=== PATIENT | female | born 2000 | race Two or more races ===

== ENCOUNTER 2023-02-23 13:17 | Emergency (ER) | payer OTHER, SELFPAY ==
--- NOTE | ~2023-02-23 | CT_ITS ---
EXAMINATION: CT brain wo con DATE: 02/23/2023 14:32 INDICATION: Migraine headache. TECHNIQUE: Computed tomography (CT) of the head was performed without intravenous contrast. The mA wa s adjusted according to patient size. Iterative reconstruction technique was employed. The dose-lengt h product was 529.67 mGy-cm. COMPARISON: None FINDINGS: There is no intracranial hemorrhage, acute infarction, or abnormal intracranial mass lesion . The ventricles are normal in size. The orbits are normal. There is mild mucosal thickening in the e thmoid sinuses. The mastoid air cells are normal. IMPRESSION: 1. Normal brain. Reviewed, dictated and finalized at location L. IMPRESSION: 1. Normal brain.
[2023-02-23 13:26] VITALS: BP 116/82; PULSE 90; RESP 16; TEMP 36.4; O2SAT 99
[2023-02-23] MEDS: KETOROLAC 15 MG/ML VIAL (*BKC) IV PUSH (15:45)
[2023-02-23] MEDS: SODIUM CHLORIDE 0.9% IV 1,000 ML 999 ML IV CONT (15:45)
[2023-02-23] MEDS: ACETAMINOPHEN 500 MG TABLET 1000 MG PO (15:46)
--- NOTE | 2023-02-23 15:47 | ED.HA ---
HPI - Headache General Chief Complaint: Headache Stated Complaint: Headache x 4 days - history of migraines Time Seen by Provider: 02/23/23 14:19 Source: patient Mode of arrival: ambulatory Limitations: no limitations History of Present Illness HPI Narrative: This is a 22 year old female that presents to the ER for headache ongoing over the last several days. Reports history of migraines. She does have as needed pain medication for this. She follows with her PCP for her history of migraines. Reports this headache was lasting longer than usual. She has had some relief with her pain medication. She did not take anything for pain today. Denies fever, visual changes, vomiting, numbness, or weakness. Related Data Allergies Allergy/AdvReac Type Severity Reaction Status Date / Time No Known Allergies Allergy Verified 02/23/23 13:19 Review of Systems Review of Systems: CONSTITUTIONAL: Denies fever EYES: Denies visual changes GASTROINTESTINAL: Denies vomiting NEUROLOGIC: Reports headache. Denies numbness, or weakness. All systems reviewed & are unremarkable except as noted in HPI and below PMFSH Past Medical History Medical History (Updated 02/23/23 @ 16:43 by Mara Webb PA-C) History of migraine Social History Social History (Updated 02/23/23 @ 15:49 by Mara Webb PA-C) Smoking status: Never smoker Exam Narrative: GENERAL: Well-appearing, well-nourished, and in no acute distress. HEAD: Normocephalic, atraumatic. EYES: PERRLA and EOMI. ENT: Nares clear, no rhinorrhea or epistaxis. Mucous membranes moist. Oropharynx without tonsillar hypertrophy exudate or other lesions. Bilateral TMs pearly davis non-bulging NECK: Supple. No adenopathy or masses. CHEST: Clear to auscultation. No respiratory distress. No wheezes rales or rhonchi HEART: Regular rate and rhythm. No murmur heard. Normal peripheral pulses. ABDOMEN: Soft, nontender, nondistended, normal active bowel sounds. EXTREMITIES: Normal range of motion. No edema. Strength equal in bilateral upper and lower extremities (5/5) SKIN: Warm, dry, no rash. NEURO: No focal deficits. Alert and oriented x3. Cranial nerves II through XII grossly intact PSYCH: Normal mood and affect Course Course Emergency Course: Patient was updated on workup and agrees with plan of care Vital Signs Vital signs: Vital Signs Temperature 97.6 F 02/23/23 13:26 Pulse Rate 90 02/23/23 13:26 Respiratory Rate 16 02/23/23 13:26 Blood Pressure 116/82 02/23/23 13:26 Pulse Oximetry 99 02/23/23 13:26 Oxygen Delivery Room Air 02/23/23 13:26 Temperature 97.6 F 02/23/23 13:26 Pulse Rate 90 02/23/23 13:26 Respiratory Rate 16 02/23/23 13:26 Blood Pressure 116/82 02/23/23 13:26 Pulse Oximetry 99 02/23/23 13:26 Oxygen Delivery Room Air 02/23/23 13:26 MDM - Headache MDM Narrative Medical decision making narrative: Patient presents to the ER for headache. History of migraines, although reports this headache was worse than usual. Patient is afebrile and nontoxic appearing. She is neurologically intact. CT scan of the brain is normal. Reports relief after IV fluids, Toradol and Tylenol. She will be given follow up with neurology if needed. She was given warnings to return to the ER Differential Diagnosis Differential diagnosis: Likely migraine, tension headache, subarachnoid hemorrhage, headache and sinusitis Imaging Data Radiologist's impression: ITS Impressions Head CT 02/23/23 14:45 IMPRESSION: 1. Normal brain. Critical Care Time Critical Care Time Critical Care Time: No Discharge Plan Discharge Clinical Impression: Headache Qualifiers: Headache type: unspecified Headache chronicity pattern: acute headache Intractability: not intractable Qualified Code(s): R51.9 - Headache, unspecified Patient Disposition: Home, Self-Care Condition: Stable Instructions: Acute Headache (ED) Additional
== END 2023-02-23 16:54 | disposition home or self-care (01) ==
PROVIDERS: Emergency Provider Physician Assistant
DX: R51.9 Headache, unspecified (principal)
CPT/HCPCS: 70450; 96361; 96374; 99284; A9270; J1885; J7030